=== PATIENT | male | born 1960 ===

== ENCOUNTER 2018-10-11 08:20 | Day surgery (SDC) | payer BC ==
[2018-10-06 14:52] VITALS: BMI 24.4
--- NOTE | 2018-10-11 08:09 | P.GSHP ---
History of Present Illness H&P Date: 10/11/18 CHIEF COMPLAINT: Colon screen HISTORY OF PRESENT ILLNESS: The patient is a 57-year-old male who presents for colon screen. Lower endoscopy was offered for further evaluation and management. PAST MEDICAL HISTORY: Please see list. PAST SURGICAL HISTORY: Please see list. MEDICATIONS: Please see list. ALLERGIES: Please see list. SOCIAL HISTORY: No illicit drug use FAMILY HISTORY: No reports of Crohn disease or ulcerative colitis. REVIEW OF ORGAN SYSTEMS: CONSTITUTIONAL: No reports of fevers or chills. PHYSICAL EXAM: VITAL SIGNS: Stable GENERAL: Well-developed pleasant in no acute distress. HEENT: No scleral icterus. Extraocular movements grossly intact. Moist buccal mucosa. NECK: Supple without lymphadenopathy. CHEST: Unlabored respirations. Equal bilateral excursions. CARDIOVASCULAR: Regular rate and rhythm. Distal 2+ pulses. ABDOMEN: Soft, nontender, nondistended. MUSCULOSKELETAL: No clubbing, cyanosis, or edema. ASSESSMENT: 1. Colon screen. PLAN: 1. 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 History of Any Multi-Drug Resistant Organisms: None Reported Past Surgical History: Hernia Repair, Tonsillectomy Additional Past Surgical History / Comment(s): REPAIR NASAL FX. UPPP. HEMORROIDECTOMY., REHANA INGUINAL HERNIAS. Past Anesthesia/Blood Transfusion Reactions: No Reported Reaction Past Psychological History: No Psychological Hx Reported Additional Psychological History / Comment(s): . Smoking Status: Former smoker Past Alcohol Use History: Rare Additional Past Alcohol Use History / Comment(s): QUIT SMOKING 3 YEARS AGO, SMOKED 3 CIGARETTES /DAY Past Drug Use History: None Reported - Past Family History Mother Family Medical History: No Reported History Medications and Allergies Home Medications Medication Instructions Recorded Confirmed Type Acetyl Carnitine-Alpha Lipoic 1 dose PO DAILY 10/06/18 History Ascorbic Acid [Vitamin C] 1,000 mg PO DAILY 10/06/18 10/06/18 History Calcium Carbonate [Calcium] 1,200 mg PO BID 10/06/18 10/06/18 History [place] Extract 150 mg PO DAILY 10/06/18 10/06/18 History [place]-3 Fatty Acids/Fish Oil [Fish 1,360 mg PO DAILY 10/06/18 10/06/18 History Oil 1,000 mg Softgel] [place] 1,000 mg PO BID 10/06/18 10/06/18 History Turmeric Root Extract [Turmeric] 400 mg PO DAILY 10/06/18 10/06/18 History Ubidecarenone [Co Q-10] 100 mg PO DAILY 10/06/18 10/06/18 History Vitamin B Complex 1 each PO DAILY 10/06/18 10/06/18 History Vitamin B-12 1 tab PO DAILY 10/06/18 10/06/18 History Vitamin E 1,000 unit PO DAILY 10/06/18 10/06/18 History Zinc 25 mg PO DAILY 10/06/18 10/06/18 History Allergies Allergy/AdvReac Type Severity Reaction Status Date / Time No Known Allergies Allergy Verified 10/06/18 14:35
[~2018-10-11 08:20] MED LIST: LACTATED RINGERS 1,000 ML IV SCH; LIDOCAINE 1% 20 ML VIAL (10MG/ML) FOR IV START INTRADERMA PRN
[2018-10-11 08:44] VITALS: RESP 16; TEMP 97.4
[2018-10-11] MEDS ORDERED: PROPOFOL 10 MG/ML 20 ML VIAL IV ONE (08:58)
[2018-10-11] MEDS ORDERED: LIDOCAINE 1% INJ 10MG/ML (20 ML MDV) ONE (08:58)
--- NOTE | 2018-10-11 09:24 | P.PCN ---
Date of Procedure: 10/11/18 Description of Procedure: PREOPERATIVE DIAGNOSIS: Personal history of colorectal polyps Colonoscopy screening. POSTOPERATIVE DIAGNOSIS: Personal history of colorectal polyps Colonoscopy screening. Diverticulosis, scattered. OPERATION: Colonoscopy to the ileocecal valve and appendiceal orifice. SURGEON: Tiara Agarwal MD. ANESTHESIA: MAC. INDICATIONS: The patient is a 57-year-old male who presents for colonoscopy screening. Last colonoscopy was 5 years ago. Benefits and risks were described and informed consent was obtained. DESCRIPTION OF PROCEDURE: The patient had undergone Gatorade, MiraLAX and Dulcolax prep. He had been brought into the operating room and laid in the left lateral decubitus position. After adequate intravenous sedation, the rectum was examined with 2% lidocaine jelly. No external hemorrhoids were encountered. The rectal tone was within normal limits. No lesions were palpated in the rectal vault. An Olympus colonoscope was advanced until the ileocecal valve and appendiceal orifice were clearly viewed. The prep was fair with residual liquid stools that obscured some of the mucosa. The colon was highly tortuous. Scattered diverticulosis was encountered. No large or adenomatous colonic polyps were found. No evidence of focal colitis was found. Retroflexion of the scope demonstrated no internal hemorrhoids. The colon was desufflated. The patient had tolerated the procedure well. Withdrawal time was over 6 minutes. FINDINGS: No internal hemorrhoids, grade 1 No external prolapsed hemorrhoids. No arteriovenous malformations. Highly tortuous colon No adenomatous polyps. The prep was fair with residual liquid stools that obscured some of the mucosa No focal colitis. RECOMMENDATIONS: Lower endoscopy in 5 years, 2023 Plan - Discharge Summary Discharge Rx Participant: No New Discharge Prescriptions: No Action Turmeric Root Extract [Turmeric] 400 mg PO DAILY Zinc 25 mg PO DAILY Vitamin E 1,000 unit PO DAILY Vitamin B-12 1 tab PO DAILY Vitamin B Complex 1 each PO DAILY Ubidecarenone [Co Q-10] 100 mg PO DAILY [place] 1,000 mg PO BID [place]-3 Fatty Acids/Fish Oil [Fish Oil 1,000 mg Softgel] 1,360 mg PO DAILY [place] Extract 150 mg PO DAILY Calcium Carbonate [Calcium] 1,200 mg PO BID Ascorbic Acid [Vitamin C] 1,000 mg PO DAILY Acetyl Carnitine-Alpha Lipoic 1 dose PO DAILY Discharge Medication List Acetyl Carnitine-Alpha Lipoic 1 dose PO DAILY 10/06/18 [History] Ascorbic Acid [Vitamin C] 1,000 mg PO DAILY 10/06/18 [History] Calcium Carbonate [Calcium] 1,200 mg PO BID 10/06/18 [History] [place] Extract 150 mg PO DAILY 10/06/18 [History] [place]-3 Fatty Acids/Fish Oil [Fish Oil 1,000 mg Softgel] 1,360 mg PO DAILY 10/06 [History] [place] 1,000 mg PO BID 10/06/18 [History] Turmeric Root Extract [Turmeric] 400 mg PO DAILY 10/06/18 [History] Ubidecarenone [Co Q-10] 100 mg PO DAILY 10/06/18 [History] Vitamin B Complex 1 each PO DAILY 10/06/18 [History] Vitamin B-12 1 tab PO DAILY 10/06/18 [History] Vitamin E 1,000 unit PO DAILY 10/06/18 [History] Zinc 25 mg PO DAILY 10/06/18 [History] Follow up Appointment(s)/Referral(s): Tiara Agarwal MD [STAFF PHYSICIAN] - As Needed Patient Instructions/Handouts: Diverticulosis Diet (GEN), Diverticulosis (DC), Colorectal Polyps (DC) Activity/Diet/Wound Care/Special Instructions: Repeat colonoscopy, 5 years, 2023 Discharge Disposition: HOME SELF-CARE
[2018-10-11 10:01] VITALS: BP 105/80; PULSE 48
== END 2018-10-11 11:55 | disposition home or self-care (01) ==
LOC: ORWHC2ENDO 08:20
PROVIDERS: ATTEND Surgery Plastic and Reconstructive Surgery
DX: Z12.11 Encounter for screening for malignant neoplasm of colon (principal); K57.30 Diverticulosis of large intestine without perforation or abscess without bleeding; Q43.8 Other specified congenital malformations of intestine; M19.90 Unspecified osteoarthritis, unspecified site; Z99.89 Dependence on other enabling machines and devices; Z87.891 Personal history of nicotine dependence; Z86.010 Personal history of colon polyps
CPT/HCPCS: G0105; J2001; J2704; 45378

== ENCOUNTER 2019-05-23 09:27 | Inpatient (IN) | payer BC ==
[2019-05-23] MEDS ORDERED: SODIUM CHLORIDE 0.9% 1,000 ML IV STA ×2 (09:56)
--- NOTE | 2019-05-23 09:59 | ED ---
General Adult HPI - General Chief complaint: Neuro Symptoms/Deficit Stated complaint: Poss tia/rt hand numb Time Seen by Provider: 05/23/19 09:56 Source: patient, RN notes reviewed, old records reviewed Mode of arrival: wheelchair Limitations: no limitations - History of Present Illness Initial comments: Patient is a 58-year-old male with a history of on Tuesday morning having some episodes of confused speech. Patient reports he was trying to describe Ruben Merino, and was saying numbers instead. Patient reports that the symptoms lasted for approximately an hour. He also stated at that time he started have some right arm numbness and weakness. He reports that the symptoms of his speech confusion improved after an hour, but he continues to have some weakness and feels that he drops things frequently with his right arm. He denies any significant past medical history including history of stroke. Patient reports he does have a family history of strokes. He complains of a mild headache at this time but seems to be just related to his sinuses states he's had a slight cold. Patient reports no fall or trauma or head injuries. He denies any visual disturbances. - Related Data Home Medications Medication Instructions Recorded Confirmed Acetyl Carnitine-Alpha Lipoic 1 dose PO DAILY 10/06/18 05/23/19 Ascorbic Acid [Vitamin C] 1,000 mg PO DAILY 10/06/18 05/23/19 Calcium Carbonate [Calcium] 1,200 mg PO BID 10/06/18 05/23/19 [place] Extract 150 mg PO DAILY 10/06/18 05/23/19 [place]-3 Fatty Acids/Fish Oil [Fish 1 cap PO DAILY 10/06/18 05/23/19 Oil 1,000 mg Softgel] Saw [place] 1,000 mg PO BID 10/06/18 05/23/19 Turmeric Root Extract [Turmeric] 500 mg PO DAILY 10/06/18 05/23/19 Ubidecarenone [Co Q-10] 100 mg PO DAILY 10/06/18 05/23/19 Vitamin B Complex 1 cap PO DAILY 10/06/18 05/23/19 Vitamin B-12 1 tab PO DAILY 10/06/18 05/23/19 Vitamin E 1,000 unit PO DAILY 10/06/18 05/23/19 Zinc 25 mg PO DAILY 10/06/18 05/23/19 Loratadine [Claritin] 10 mg PO DAILY 05/23/19 05/23/19 Allergies Allergy/AdvReac Type Severity Reaction Status Date / Time No Known Allergies Allergy Verified 05/23/19 09:52 Review of Systems ROS Statement: Those systems with pertinent positive or pertinent negative responses have been documented in the HPI. ROS Other: All systems not noted in ROS Statement are negative. 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 History of Any Multi-Drug Resistant Organisms: None Reported Past Surgical History: Hernia Repair, Tonsillectomy Additional Past Surgical History / Comment(s): REPAIR NASAL FX. UPPP. HEMORROIDECTOMY., REHANA INGUINAL HERNIAS. Past Anesthesia/Blood Transfusion Reactions: No Reported Reaction Past Psychological History: Depression Smoking Status: Current some day smoker Past Alcohol Use History: None Reported Past Drug Use History: None Reported - Past Family History Mother Family Medical History: No Reported History General Exam - General Exam Comments Initial Comments: Alert and oriented 58-year-old male. No distress. Limitations: no limitations General appearance: alert, in no apparent distress Head exam: Present: atraumatic, normocephalic, normal inspection Eye exam: Present: normal appearance, PERRL, EOMI. Absent: scleral icterus, conjunctival injection, periorbital swelling ENT exam: Present: normal exam, mucous membranes moist Neck exam: Present: normal inspection. Absent: tenderness, meningismus, lymphadenopathy Respiratory exam: Present: normal lung sounds bilaterally. Absent: respiratory distress, wheezes, rales, rhonchi, stridor Cardiovascular Exam: Present: regular rate, normal rhythm, normal heart sounds. Absent: systolic murmur, diastolic murmur, rubs, gallop, clicks GI/Abdominal exam: Present: soft, normal bowel sounds. Absent: distended, tenderness, guarding, rebound, rigid Extremities exam: Present: normal inspection, full ROM, normal capillary refill. Absent: tenderness, pedal edema, joint swelling, calf tenderness Back exam: Present: normal inspection Neurological exam: Present: alert Expanded Patient oriented to: Present: person, place Speech: Present: fluid speech Cranial nerves: EOM's Intact: Normal Cerebellar function: Finger to Nose: Normal Upper motor neuron: Pronator Drift: Normal Sensory exam: Upper Extremity Light Touch: Normal, Lower Extremity Light Touch: Normal Motor strength exam: RUE: 5 (Patient has full strength of the right upper extremity. ), LUE: 5, RLE: 5, LLE: 5 Eye Response: (4) open spontaneously Motor Response: (6) obeys commands Verbal Response: (5) oriented [place] Total: 15 Psychiatric exam: Present: normal affect, normal mood Skin exam: Present: warm, dry, intact, normal color. Absent: rash Course Vital Signs 05/23/19 05/23/19 05/23/19 09:30 10:27 11:26 Temperature 98 F Pulse Rate 61 69 58 L Respiratory 18 18 18 Rate Blood Pressure 142/85 120/80 116/83 O2 Sat by Pulse 98 95 97 Oximetry Medical Decision Making - Medical Decision Making 58-year-old male presents emergency department today for concern for an episode on Tuesday, 2 days ago he was forgetting his words replacing him with nonsensical words and he recognized this. Patient reports he was trying to say the words "leaky" and was saying numbers instead. He had other episodes of this. The symptoms resolved after an hour. He also at that time developed some right arm and upper extremity weakness. 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 He states that now just feels very clumsy and dropping things frequently. At this time he has no neurological deficits. NIH is 0. He is otherwise relatively healthy. He does have a family history of strokes and heart disease. At this time patient's labwork was reviewed and unremarkable. EKG shows normal sinus rhythm. At this time CT brain was completed and shows chronic small vessel changes. I discussed the patient's symptoms are related to likely a TIA. I discussed that Patient can be further evaluated have a consult to neurology. Patient is agreeable to this. Vital signs are stable Patient is agreeable treatment plan. Patient was given one aspirin. - Lab Data Result diagrams: 05/23/19 10:13 05/23/19 10:13 Lab Results 05/23/19 05/23/19 05/23/19 Range/Units 10: 10: 10:13 WBC 10.3 (3.8-10.6) k/uL RBC 4.76 (4.30-5.90) m/uL Hgb 14.2 (13.0-17.5) gm/dL Hct 43.1 (39.0-53.0) % MCV 90.5 (80.0-100.0) fL MCH 29.9 (25.0-35.0) pg MCHC 33.0 (31.0-37.0) g/dL RDW 13.0 (11.5-15.5) % Plt Count 225 (150-450) k/uL Neutrophils % 76 % Lymphocytes % 15 % Monocytes % 6 % Eosinophils % 1 % Basophils % 2 % Neutrophils # 7.8 H (1.3-7.7) k/uL Lymphocytes # 1.6 (1.0-4.8) k/uL Monocytes # 0.6 (0-1.0) k/uL Eosinophils # 0.1 (0-0.7) k/uL Basophils # 0.2 (0-0.2) k/uL PT 10.6 (9.0-12.0) sec INR 1.0 (<1.2) APTT 26.1 (22.0-30.0) sec Sodium 141 (137-145) mmol/L Potassium 4.1 (3.5-5.1) mmol/L Chloride 107 (98-107) mmol/L Carbon Dioxide 26 (22-30) mmol/L Anion Gap 8 mmol/L BUN 17 (9-20) mg/dL Creatinine 0.94 (0.66-1.25) mg/dL Est GFR (CKD-EPI)AfAm >90 (>60 ml/min/1.73 sqM) Est GFR (CKD-EPI)NonAf >90 (>60 ml/min/1.73 sqM) Glucose 94 (74-99) mg/dL Calcium 9.3 (8.4-10.2) mg/dL Total Bilirubin 0.4 (0.2-1.3) mg/dL AST 20 (17-59) U/L ALT 21 (21-72) U/L Alkaline Phosphatase 87 (38-126) U/L Troponin I (0.000-0.034) ng/mL Total Protein 6.8 (6.3-8.2) g/dL Albumin 4.0 (3.5-5.0) g/dL 05/23/19 Range/Units 10:13 WBC (3.8-10.6) k/uL RBC (4.30-5.90) m/uL Hgb (13.0-17.5) gm/dL Hct (39.0-53.0) % MCV (80.0-100.0) fL MCH (25.0-35.0) pg MCHC (31.0-37.0) g/dL RDW (11.5-15.5) % Plt Count (150-450) k/uL Neutrophils % % Lymphocytes % % Monocytes % % Eosinophils % % Basophils % % Neutrophils # (1.3-7.7) k/uL Lymphocytes # (1.0-4.8) k/uL Monocytes # (0-1.0) k/uL Eosinophils # (0-0.7) k/uL Basophils # (0-0.2) k/uL PT (9.0-12.0) sec INR (<1.2) APTT (22.0-30.0) sec Sodium (137-145) mmol/L Potassium (3.5-5.1) mmol/L Chloride (98-107) mmol/L Carbon Dioxide (22-30) mmol/L Anion Gap mmol/L BUN (9-20) mg/dL Creatinine (0.66-1.25) mg/dL Est GFR (CKD-EPI)AfAm (>60 ml/min/1.73 sqM) Est GFR (CKD-EPI)NonAf (>60 ml/min/1.73 sqM) Glucose (74-99) mg/dL Calcium (8.4-10.2) mg/dL Total Bilirubin (0.2-1.3) mg/dL AST (17-59) U/L ALT (21-72) U/L Alkaline Phosphatase (38-126) U/L Troponin I <0.012 (0.000-0.034) ng/mL Total Protein (6.3-8.2) g/dL Albumin (3.5-5.0) g/dL 05/23/19 11:03 EKG performed at 10:10 AM shows sinus bradycardia, septal infarct age undetermined. Abnormal EKG noted. No jugular rate of 57 bpm. MO interval is 184 ms. She spiritism is 104 ms. QT QTc is 426/392 ms. - Radiology Data Radiology results: report reviewed Age-related atrophy and chronic small vessel ischemic change without acute intercranial process seen at this time. Disposition Clinical Impression: TIA (transient ischemic attack) Disposition: ADMITTED IP TO THIS HOSP Condition: Good Is patient prescribed a controlled substance at d/c from ED?: No Referrals: Fabián Vu MD [Primary Care Provider] - 1-2 days Time of Disposition: 12:02
[2019-05-23 10:25] LABS: Basophils # (A) 0.2 k/uL (0-0.2); Basophils % (A) 2 %; Eosinophils # (A) 0.1 k/uL (0-0.7); Eosinophils % (A) 1 %; HCT 43.1 % (39.0-53.0); HGB 14.2 gm/dL (13.0-17.5); Lymphocytes # (A) 1.6 k/uL (1.0-4.8); Lymphocytes % (A) 15 %; MCH 29.9 pg (25.0-35.0); MCV 90.5 fL (80.0-100.0); Mean Platelet Volume 6.8; Monocytes # (A) 0.6 k/uL (0-1.0); Monocytes % (A) 6 %; Neutrophils # (A) 7.8 k/uL (1.3-7.7); Neutrophils % (A) 76 %; Platelet Count 225 k/uL (150-450); RBC 4.76 m/uL (4.30-5.90); WBC 10.3 k/uL (3.8-10.6)
[2019-05-23 10:33] LABS: ALT 21 U/L (21-72); AST 20 U/L (17-59); African American GFR (CKD) >90 (>60 ml/min/1.73 sqM); Alkaline Phosphatase 87 U/L (38-126); Anion Gap 8 mmol/L; Blood Urea Nitrogen 17 mg/dL (9-20); Calcium 9.3 mg/dL (8.4-10.2); Carbon Dioxide 26 mmol/L (22-30); Chloride 107 mmol/L (98-107); Glucose 94 mg/dL (74-99); Non-African American GFR(CKD) >90 (>60 ml/min/1.73 sqM); Potassium 4.1 mmol/L (3.5-5.1); Sodium 141 mmol/L (137-145); Total Bilirubin 0.4 mg/dL (0.2-1.3); Total Protein 6.8 g/dL (6.3-8.2)
[2019-05-23 10:35] LABS: Partial Thromboplastin Time 26.1 sec (22.0-30.0); Prothrombin Time 10.6 sec (9.0-12.0)
--- NOTE | 2019-05-23 10:51 | XR ---
EXAMINATION TYPE: XR chest 2V DATE OF EXAM: 05/23/2019 COMPARISON: NONE HISTORY: Shortness of breath TECHNIQUE: Frontal and lateral views of the chest are obtained. FINDINGS: Scattered senescent parenchymal changes noted. Hyperinflation compatible with COPD. No evidence for infiltrate. No evidence for atelectasis. Heart size is stable. Mediastinal structures are stable and grossly unremarkable. No evidence for hilar prominence. Degenerative changes dorsal spine. IMPRESSION: 1. No evidence for acute pulmonary disease.
--- NOTE | 2019-05-23 10:55 | CT ---
EXAMINATION TYPE: CT brain wo con DATE OF EXAM: 05/23/2019 COMPARISON: none HISTORY: difficulty with speech CT DLP: 1131.[address] of the brain was performed. The ventricles, basal cisterns and sulci overlying the cerebral convexities demonstrate mild enlargem ent. There is no evidence for intracranial hemorrhage or sulcal effacement. There is decreased attenuation about the periventricular white matter and deep white matter of both c erebral hemispheres, compatible with chronic small vessel ischemia. Differential diagnosis does inclu de demyelination. No mass effects are seen.No midline shift. Osseous calvarium is intact. If symptoms persist consider MRI. IMPRESSION: 1. Age related atrophic and chronic small vessel ischemic change without acute intracranial process s een at this time.
[2019-05-23] MEDS ORDERED: ASPIRIN 325 MG TAB PO STA (12:02)
[2019-05-23] MEDS: SODIUM CHLORIDE 0.9% 1,000 ML IV SCH (17:47)
--- NOTE | 2019-05-23 18:10 | CT ---
EXAMINATION TYPE: CT angio head neck DATE OF EXAM: 05/23/2019 HISTORY: TIA/RT ARM WEAKNESS COMPARISON: None CT DLP: 495.5 mGycm. Automated Exposure Control for Dose Reduction was Utilized. TECHNIQUE: CTA scan of the neck is performed with IV Contrast, patient injected with 65 mL of Isovue 370, axial images are obtained, coronal and sagittal reformatted images are reviewed. Three-D recons tructed images are created on an independent workstation and reviewed. FINDINGS: There is aberrant right subclavian artery which is posterior to the trachea. There is arterial flow i n the subclavian arteries bilaterally. There is arterial flow in the common internal and external car otid arteries bilaterally. There is wide patency of the carotid artery bifurcations. There is arteria l flow in both vertebral arteries which are fairly symmetric. There is arterial flow in the vertebrob asilar artery system. There is no evidence of vertebral or carotid artery aneurysm or dissection. No evidence of carotid or vertebral artery stenosis. There is arterial flow in the anterior middle and posterior cerebral arteries. There is normal contra st opacification of the venous sinuses. There is no mass effect. There is no evidence of intracranial aneurysm or neovascularity. There is no evidence of intracranial arterial stenosis. There is bilater al patency of the posterior communicating arteries. IMPRESSION: Negative CT angiogram of the brain. Negative CT angiogram of the neck. Aberrant right subclavian artery.
--- NOTE | 2019-05-23 18:19 | MR ---
EXAMINATION TYPE: MR brain wo con DATE OF EXAM: 05/23/2019 COMPARISON: None HISTORY: speech disturbance, RUE weakness/numbness Standard multiplanar, multisequence MRI departmental protocol Multiplanar, multisequence images of the brain were acquired. Diffusion weighted imaging was performe d. FINDINGS: There is 1.5 cm focus of increased signal on the diffusion images in the left cerebellar he misphere at the wilkinson-white matter junction. There is no mass effect. There is no midline shift. There is a similar 1.5 cm focus of increased signal in the cortex left insula of the temporal lobe. There is a 10 mm high signal focus at the wilkinson-white matter junction left posterior parietal lobe. On the T2 and FLAIR images there are multiple foci of increased signal at the wilkinson-white matter junct ion in both cerebral hemispheres. Total number is approximately 20 and most of these are 3 to 4 mm. There is mucosal thickening in the maxillary sinuses. The sella turcica appears normal. Brainstem is intact. Corpus callosum is intact. There is no evidence of intracranial hemorrhage. There is no mass effect. 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 There is also small acute infarct left posterior parietal lobe w tona matter . Numerous scattered small white matter high signal foci probably due to chronic small vessel ischemia.
--- NOTE | 2019-05-23 20:03 | P.CNNES ---
History of Present Illness Consult date: 05/23/19 Reason for Consult: TIA Chief complaint: Confused speech History of Present Illness: HISTORY OF PRESENT ILLNESS: Thank you for allowing me to evaluate Mr. Eb Johnson. Mr. Johnson is a 58-year-old R-handed man with past medical history of Osteoarthritis, sleep apnea, depression, presenting to [facility] after having an event of speech disturbance on Tuesday. Patient states that he was spending time with his son's family in [place], [place] for about 3 weeks. On Tuesday, before his son headed out to work, he wanted to [facility], but he couldn't say the name of the [place], so he was trying to think [place], but he couldn't say those words and ended up just counting numbers. This event lasted for a couple of minutes and went away. During this event, he also noticed some numbness in his RUE. Patient also experienced mild weakness in his RUE since the event. He has not had similar episodes since the event. Patient denies ever having similar episodes, and no previous episodes of numbness, tingling, weakness, vision changes, dizziness, or dropping things. Denies any headache, nausea, vomiting, double/blurry vision, dizziness, recent sickness. PAST MEDICAL HISTORY: Osteoarthritis, sleep apnea, depression PAST SURGICAL HISTORY: Tonsillectomy, hernia repair, nasal fracture repair, hemorrhoidectomy HOME MEDICATIONS: turmeric, zinc, vitamin E, vitamin B12, vitamin B complex, Co Q-10, Saw [place], [place], [place] Extract, Calcium, Vitamin C, Loratadine ALLERGIES: NKDA SOCIAL HISTORY: Former cigarette smoker, average <5 cigarettes per day, smokes pipes now, denies EtOH/drug abuse history FAMILY HISTORY: Grandmother had a stroke REVIEW OF SYSTEMS: The 14 systems are reviewed and no additional points are identified compared to the review of systems documented history and physical PHYSICAL EXAMINATION: VITAL SIGNS: T 98 HR 61 BP 142/85 O2 98% on RA GEN.: NAD, pleasant and cooperative HEENT: NCAT, sclera without icterus NECK: Supple SKIN AND EXTREMITIES: Warm to touch, no edema NEURO: MENTAL STATUS: Patient alert and oriented to self, place, time. Able to name the current president. Speech fluent, able to name and repeat, following all commands readily. No right and left disorientation, neglect. CRANIAL NERVES II THROUGH XII: II: [Pupils are equal and reactive to light symmetrically. No afferent pupillary defect. Visual levy are intact. III, IV, : No ptosis. Extraocular movements full. No nystagmus. V: Facial sensation intact from V1-3. VII. No clear facial asymmetry. VIII: Hearing intact to finger rub bilaterally. IX, X: Symmetric palate elevation. XI: Shoulder shrug intact. XII: Tongue midline without fasciculation or atrophy. MOTOR: Normal bulk/tone. No pronator drift or tremor. Strength is 5/5 throughout all 4 extremities. SENSORY: Intact to light touch, temperature, pinprick in all 4 extremities. Romberg is negative. REFLEXES: 2+ throughout. Toes are downgoing. No clonus. Trever's is absent COORDINATION: Finger to nose and heel to cabral intact. No dysmetria. Rapid alternating movements with good speed and accuracy. GAIT: Narrow-based and stable. Able to toe/heel/tandem walk DIAGNOSTIC TESTING: LABORATORY: WBC 10.3 hemoglobin 14.2 platelet 225 PT 10.6 INR 1.0 sodium 141 potassium 4.1 chloride 107 bicarb 26 BUN 17 creatinine 0.94 glucose 94 AST 20 ALT 21 troponin <0.012 IMAGING: CT head without contrast 05/23/2019: Age-related atrophic and chronic small vessel ischemic changes without acute intracranial process EKG 05/23/2019: Sinus bradycardia ASSESSMENT: Mr. Johnson is a 58-year-old R-handed man with past medical history of Osteoarthritis, sleep apnea, depression, presenting to [facility] after having an event of speech disturbance on Tuesday. Patient at this time with no objective focal symptoms. However, patient reports R-sided symptoms along with speech difficulty and patient is R handed, concerning for L-sided cortical stroke. RECOMMENDATIONS: 1. MRI brain without contrast 2. CTA Head and Neck w/ contrast 3. Transthoracic echocardiogram 4. Cardiac monitoring 5. SBP < 160 6. ASA 81mg qday, Atorvastatin 80mg qhs (patient is also on Plavix for cardiac reasons) 7. Labs: A1C, TSH, FLP 8. PT/OT/ST per protocol 9. Discussed with patient about stroke prevention guidelines. Medication compliance, hypertension/diabetes control, lifestyle changes including no smoking, drinking in moderation, losing weight, exercising, eating healthier 10. Neurology will continue to follow 11. 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 History of Any Multi-Drug Resistant Organisms: None Reported Past Surgical History: Hernia Repair, Tonsillectomy Additional Past Surgical History / Comment(s): REPAIR NASAL FX. UPPP. HEMORROIDECTOMY., REHANA INGUINAL HERNIAS. Past Anesthesia/Blood Transfusion Reactions: No Reported Reaction Past Psychological History: Depression Smoking Status: Current some day smoker Past Alcohol Use History: None Reported Past Drug Use History: None Reported - Past Family History Mother Family Medical History: No Reported History Father Family Medical History: Vascular Disorder Additional Family Medical History / Comment(s): Father from a disected aortic aneurysm. He has TB Medications and Allergies Home Medications Medication Instructions Recorded Confirmed Type Acetyl Carnitine-Alpha Lipoic 1 dose PO DAILY 10/06/18 05/23/19 History Ascorbic Acid [Vitamin C] 1,000 mg PO DAILY 10/06/18 05/23/19 History Calcium Carbonate [Calcium] 1,200 mg PO BID 10/06/18 05/23/19 History [place] Extract 150 mg PO DAILY 10/06/18 05/23/19 History [place]-3 Fatty Acids/Fish Oil [Fish 1 cap PO DAILY 10/06/18 05/23/19 History Oil 1,000 mg Softgel] [place] 1,000 mg PO BID 10/06/18 05/23/19 History Turmeric Root Extract [Turmeric] 500 mg PO DAILY 10/06/18 05/23/19 History Ubidecarenone [Co Q-10] 100 mg PO DAILY 10/06/18 05/23/19 History Vitamin B Complex 1 cap PO DAILY 10/06/18 05/23/19 History Vitamin B-12 1 tab PO DAILY 10/06/18 05/23/19 History Vitamin E 1,000 unit PO DAILY 10/06/18 05/23/19 History Zinc 25 mg PO DAILY 10/06/18 05/23/19 History Loratadine [Claritin] 10 mg PO DAILY 05/23/19 05/23/19 History Allergies Allergy/AdvReac Type Severity Reaction Status Date / Time No Known Allergies Allergy Verified 05/23/19 09:52 Physical Examination - Vital Signs Vital Signs: Vital Signs Temp Pulse Resp BP Pulse Ox 05/23/19 11:26 58 L 18 116/83 97 05/23/19 10:27 69 18 120/80 95 05/23/19 09:30 98 F 61 18 142/85 98 Intake and Output 05/22/19 05/23/19 05/23/19 22:59 06:59 14:59 Other: Weight 79.379 kg Results - Laboratory Findings CBC and BMP: 05/23/19 10:13 05/23/19 10:13 Abnormal Lab Findings: Abnormal Labs 05/23/19 10:13 Neutrophils # 7.8 H
[2019-05-23] MEDS: CALCIUM CARBONATE 500 MG CHEWABLE PO SCH ×2 (20:42→20:54)
[2019-05-23] MEDS: ATORVASTATIN 80 MG TAB PO SCH (20:42)
[2019-05-23] MEDS: ENOXAPARIN 40 MG/0.4 ML SYRINGE SQ SCH (20:43)
[2019-05-24] MEDS: SODIUM CHLORIDE 0.9% 1,000 ML IV SCH ×3 (03:04→16:18)
[2019-05-24] MEDS ORDERED: ASPIRIN 325 MG TAB PO SCH (09:00)
--- NOTE | 2019-05-24 10:14 | P.CRDCN ---
History of Present Illness Consult date: 05/24/19 Requesting physician: Juan Santos Chief complaint: Speech disturbance History of present illness: This is a 58-year-old gentleman with history of sleep apnea, depression, osteoarthritis, presented to the hospital with symptoms of expressive aphasia, the symptoms lasted for a couple of minutes and then went a way. Patient also noticed some numbness and weakness in his right upper extremity. For this reason he presented to the hospital for further evaluation and treatment. Chest x-ray on presentation here did not reveal any evidence for acute pulmonary disease. CAT scan of the brain showed age-related atrophic and chronic small vessel ischemic change without acute intracranial process. EKG shows a sinus bradycardia with no acute changes. CT angiography of the head and neck, negative CT of the brain negative CT angiogram of the neck. MRI of the brain was performed which reveals evidence of acute cortical infarct involving the insulin the left temporal lobe and also the left cerebellar hemisphere. There is also small acute infarct of the left posterior parietal lobe. Numerous scattered white matter probably due to chronic small vessel ischemia. Blood pressure 119/60 with a heart rate in the 50s, 96% on room air. White blood cell count 10.3, hemoglobin 14.2, platelet count 225. Sodium 141, potassium 4.1, BUN 17 and creatinine 0.9. Troponin 0.012. At the time of my examination this morning, patient is back to his normal self. He denies any right-sided weakness, his speech is back to normal. Primary care doc has requested cardiology to perform a SARINA. 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 History of Any Multi-Drug Resistant Organisms: None Reported Past Surgical History: Hernia Repair, Tonsillectomy Additional Past Surgical History / Comment(s): REPAIR NASAL FX. UPPP. HEMORROIDECTOMY., REHANA INGUINAL HERNIAS. Past Anesthesia/Blood Transfusion Reactions: No Reported Reaction Past Psychological History: Depression Smoking Status: Current some day smoker Past Alcohol Use History: None Reported Past Drug Use History: None Reported - Past Family History Mother Family Medical History: No Reported History Additional Family Medical History / Comment(s): Mother from an aortic leak. Father Family Medical History: Vascular Disorder Additional Family Medical History / Comment(s): Father from a disected aortic aneurysm. He has TB Medications and Allergies Home Medications Medication Instructions Recorded Confirmed Type Acetyl Carnitine-Alpha Lipoic 1 dose PO DAILY 10/06/18 05/23/19 History Ascorbic Acid [Vitamin C] 1,000 mg PO DAILY 10/06/18 05/23/19 History Calcium Carbonate [Calcium] 1,200 mg PO BID 10/06/18 05/23/19 History [place] Extract 150 mg PO DAILY 10/06/18 05/23/19 History [place]-3 Fatty Acids/Fish Oil [Fish 1 cap PO DAILY 10/06/18 05/23/19 History Oil 1,000 mg Softgel] Saw [place] 1,000 mg PO BID 10/06/18 05/23/19 History Turmeric Root Extract [Turmeric] 500 mg PO DAILY 10/06/18 05/23/19 History Ubidecarenone [Co Q-10] 100 mg PO DAILY 10/06/18 05/23/19 History Vitamin B Complex 1 cap PO DAILY 10/06/18 05/23/19 History Vitamin B-12 1 tab PO DAILY 10/06/18 05/23/19 History Vitamin E 1,000 unit PO DAILY 10/06/18 05/23/19 History Zinc 25 mg PO DAILY 10/06/18 05/23/19 History Loratadine [Claritin] 10 mg PO DAILY 05/23/19 05/23/19 History Allergies Allergy/AdvReac Type Severity Reaction Status Date / Time No Known Allergies Allergy Verified 05/23/19 09:52 Physical Exam Vitals: Vital Signs Temp Pulse Pulse Resp BP BP Pulse Ox 05/24/19 08:22 54 L 05/24/19 07:50 54 L 05/24/19 07:47 97.8 F 54 L 17 119/64 96 05/24/19 07:00 97.8 F 54 L 17 117/64 96 05/24/19 04:00 97.1 F L 47 L 16 117/69 92 L 05/24/19 00:00 98.3 F 53 L 17 112/70 96 05/23/19 20:00 98.1 F 56 L 16 122/78 95 05/23/19 16:13 98.1 F 52 L 18 111/86 96 05/23/19 13:52 59 L 16 110/82 05/23/19 13:02 16 05/23/19 11:26 58 L 18 116/83 97 05/23/19 10:27 69 18 120/80 95 Intake and Output 05/23/19 05/24/19 05/24/19 22:59 06:59 14:59 Intake Total 2120 750 Balance 2120 750 Intake: IV 10 Invasive Line 1 10 Amount of Fluid Infused ( 1000 ml) Intake, IV Titration 150 750 Amount Sodium Chloride 0.9% 1, 150 750 000 ml @ 100 mls/hr IV . Q10H [facility] Rx#:[id number] Oral 960 Other: Voiding Method Toilet Toilet # Voids 1 Weight 81.9 kg PHYSICAL EXAMINATION: GENERAL: 78-year-old gentleman in no acute distress at the time of my examination HEENT: Head is atraumatic, normocephalic. Pupils equal, round. Sclera anicteric. Conjunctiva are clear. Mucous membranes of the mouth are moist. Neck is supple. There is no elevated jugular venous pressure. No carotid bruit is heard. HEART EXAMINATION: Heart S1, S2 normal. No murmur or gallop heard. CHEST EXAMINATION: Lungs are clear to auscultation and precussion. No chest wall tenderness is noted on palpation or with deep breathing. ABDOMEN: Soft, nontender. Bowel sounds are heard. No organomegaly noted. EXTREMITIES: 2+ peripheral pulses with no evidence of peripheral edema and no calf tenderness noted. NEUROLOGIC patient is awake, alert and oriented 3 . . Results 05/23/19 10:13 05/23/19 10:13 Cardiac Enzymes 05/23/19 05/23/19 Range/Units 10:13 10:13 AST 20 (17-59) U/L Troponin I <0.012 (0.000-0.034) ng/mL Coagulation 05/23/19 Range/Units 10:13 PT 10.6 (9.0-12.0) sec APTT 26.1 (22.0-30.0) sec Lipids 05/23/19 Range/Units 10:13 Triglycerides 58 (<150) mg/dL Cholesterol 175 (<200) mg/dL HDL Cholesterol 46 (40-60) mg/dL CBC 05/23/19 Range/Units 10:13 WBC 10.3 (3.8-10.6) k/uL RBC 4.76 (4.30-5.90) m/uL Hgb 14.2 (13.0-17.5) gm/dL Hct 43.1 (39.0-53.0) % Plt Count 225 (150-450) k/uL Comprehensive Metabolic Panel 05/23/19 Range/Units 10:13 Sodium 141 (137-145) mmol/L Potassium 4.1 (3.5-5.1) mmol/L Chloride 107 (98-107) mmol/L Carbon Dioxide 26 (22-30) mmol/L BUN 17 (9-20) mg/dL Creatinine 0.94 (0.66-1.25) mg/dL Glucose 94 (74-99) mg/dL Calcium 9.3 (8.4-10.2) mg/dL AST 20 (17-59) U/L ALT 21 (21-72) U/L Alkaline Phosphatase 87 (38-126) U/L Total Protein 6.8 (6.3-8.2) g/dL Albumin 4.0 (3.5-5.0) g/dL Current Medications Generic Name Dose Route Start Last Admin Trade Name Freq PRN Reason Stop Dose Admin Ascorbic Acid 1,000 mg 05/24/19 09:00 Vitamin C PO DAILY [facility] Aspirin 81 mg 05/24/19 09:00 Aspirin PO DAILY [facility] Atorvastatin Calcium 80 mg 05/23/19 21:00 05/23/19 20:42 Lipitor PO 80 mg HS [facility] Administration Calcium Carbonate/Glycine 1,000 mg 05/23/19 21:00 05/23/19 20:54 Tums PO Not Given BID [facility] Enoxaparin Sodium 40 mg 05/23/19 20:00 05/23/19 20:43 Lovenox SQ 40 mg DAILY@2000 [facility] Administration Sodium Chloride 1,000 mls @ 100 mls/hr 05/23/19 12:15 05/24/19 09:12 Saline 0.9% IV 100 mls/hr .Q10H [facility] Administration Intake and Output 05/23/19 05/24/19 05/24/19 22:59 06:59 14:59 Intake Total 2120 750 Balance 2120 750 Intake: IV 10 Invasive Line 1 10 Amount of Fluid Infused ( 1000 ml) Intake, IV Titration 150 750 Amount Sodium Chloride 0.9% 1, 150 750 000 ml @ 100 mls/hr IV . Q10H [facility] Rx#:[id number] Oral 960 Other: Voiding Method Toilet Toilet # Voids 1 Weight 81.9 kg 05/23/19 10:13 05/23/19 10:13 EKG Interpretations (text) EKG shows normal sinus rhythm with no acute changes. 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 We will also discuss with neurology the need for SARINA, if it's recommended, we will schedule patient for SARINA. Further recommendations to follow. DNP note has been reviewed, I agree with a documented findings and plan of care. Patient was seen and examined.
--- NOTE | 2019-05-24 11:13 | P.PN ---
Progress Note - Text Progress Note Date: 05/24/19 SUBJECTIVE/INTERVAL EVENTS: no acute overnight events. pt with no additional episodes of speech difficulty, weakness or numbness/tingling. Denies headache, nausea, vomiting. PHYSICAL EXAMINATION: VITAL SIGNS: T 97.8 HR 54 RR 17 BP 119/64 O2 sat 96% on RA GEN.: NAD, pleasant and cooperative HEENT: NCAT, sclera without icterus NECK: Supple SKIN AND EXTREMITIES: Warm to touch, no edema NEURO: MENTAL STATUS: Patient alert and oriented to self, place, time. Able to name the current president. Speech fluent, able to name and repeat, following all commands readily. No right and left disorientation, neglect. CRANIAL NERVES II THROUGH XII: II: [Pupils are equal and reactive to light symmetrically. No afferent pupillary defect. Visual levy are intact. III, IV, : No ptosis. Extraocular movements full. No nystagmus. V: Facial sensation intact from V1-3. VII. No clear facial asymmetry. VIII: Hearing intact to finger rub bilaterally. IX, X: Symmetric palate elevation. XI: Shoulder shrug intact. XII: Tongue midline without fasciculation or atrophy. MOTOR: Normal bulk/tone. No pronator drift or tremor. Strength is 5/5 throughout all 4 extremities. SENSORY: Intact to light touch, temperature, pinprick in all 4 extremities. Romberg is negative. REFLEXES: 2+ throughout. Toes are downgoing. No clonus. Trever's is absent COORDINATION: Finger to nose and heel to cabral intact. No dysmetria. Rapid alternating movements with good speed and accuracy. GAIT: Narrow-based and stable. Able to toe/heel/tandem walk DIAGNOSTIC TESTING: LABORATORY: WBC 10.3 hemoglobin 14.2 platelet 225 PT 10.6 INR 1.0 sodium 141 potassium 4.1 chloride 107 bicarb 26 BUN 17 creatinine 0.94 glucose 94 AST 20 ALT 21 troponin <0.012 TSH 2.990 total cholesterol 175 LDL 117 HDL 46 triglycerides 58 IMAGING: MRI brain without contrast 05/23/2019: Acute cortical infarct involving the insula of the left temporal lobe and also the left cerebellar hemisphere. There is also acute infarct left posterior parietal lobe white matter. Numerous scattered small white matter high signal foci probably due to chronic small vessel ischemia CTA head and neck with contrast 05/23/2019: Negative CT of the brain and neck. CT head without contrast 05/23/2019: Age-related atrophic and chronic small vessel ischemic changes without acute intracranial process EKG 05/23/2019: Sinus bradycardia ASSESSMENT: Mr. Johnson is a 58-year-old R-handed man with past medical history of Osteoarthritis, sleep apnea, depression, presenting to [facility] after having an event of speech disturbance on Tuesday. Patient at this time with no objective focal symptoms. However, patient reports R-sided symptoms along with speech difficulty and patient is R handed, concerning for L-sided cortical stroke. MRI brain showing acute cortical infarct involving the left temporal lobe, left cerebellar hemisphere, and left posterior parietal lobe. Distribution of areas of stroke concerning for cardioembolic etiology. RECOMMENDATIONS: 1. Transthoracic echocardiogram; if unremarkable, plan to get SARINA 2. Cardiac monitoring (bradycardia; no atrial arrhythmia observed so far); event monitor/loop recorder will be placed 3. SBP < 160 4. ASA 81mg qday, Atorvastatin 80mg qhs (patient is also on Plavix for cardiac reasons) 5. Labs: A1C 6. PT/OT/ST per protocol 7. Discussed with patient about stroke prevention guidelines. Medication compliance, hypertension/diabetes control, lifestyle changes including no smoking, drinking in moderation, losing weight, exercising, eating healthier 8. Neurology will continue to follow 9. Patient will need to follow up with neurologist as outpatient
--- NOTE | 2019-05-24 11:53 | ECHOF ---
Referral Reason:speech disturbance, RUE weakness/numbness MEASUREMENTS -------- HEIGHT: 188.0 cm WEIGHT: 81.6 kg BP: 117/60 RVIDd: 4.2 cm (< 3.3) IVSd: 1.2 cm (0.6 - 1.1) LVIDd: 4.8 cm (3.9 - 5.3) LVPWd: 1.3 cm (0.6 - 1.1) IVSs: 1.4 cm LVIDs: 4.2 cm LVPWs: 1.4 cm LA Diam: 3.7 cm (2.7 - 3.8) LAESV Index (A-L): 22.00 ml/m Ao Diam: 2.9 cm (2.0 - 3.7) AV Cusp: 1.9 cm (1.5 - 2.6) LA Diam: 4.0 cm (2.7 - 3.8) MV EXCURSION: 22.863 mm (> 18.000) MV EF SLOPE: 120 mm/s (70 - 150) EPSS: 0.5 cm MV E David: 0.65 m/s MV DecT: 201 ms MV A David: 0.76 m/s MV E/A Ratio: 0.86 RAP: 5.00 mmHg RVSP: 13.38 mmHg TAPSE: 24.34 mm FINDINGS -------- Sinus rhythm. This was a technically good study. The left ventricular size is normal. There is mild concentric left ventricular hypertrophy. Overa ll left ventricular systolic function is normal with, an EF between 55 - 60 %. The right ventricle is normal in size. The left atrial size is normal. Normal LA size by volume 22+/-6 ml/m2. The right atrial size is normal. The aortic valve is trileaflet, and appears structurally normal. No aortic stenosis or regurgitation. Mild mitral regurgitation is present. Mild tricuspid regurgitation present. Right ventricular systolic pressure is normal at < 35 mmHg. There is no evidence of pulmonary hypertension. There is no pulmonic regurgitation present. The aortic root size is normal. There is no pericardial effusion. CONCLUSIONS -------- 1. Sinus rhythm. 2. This was a technically good study. 3. The left ventricular size is normal. 4. There is mild concentric left ventricular hypertrophy. 5. Overall left ventricular systolic function is normal with, an EF between 55 - 60 %. 6. The right ventricle is normal in size. 7. The left atrial size is normal. 8. Normal LA size by volume 22+/-6 ml/m2. 9. The right atrial size is normal. 10. The aortic valve is trileaflet, and appears structurally normal. No aortic stenosis or regurgitat ion. 11. Mild mitral regurgitation is present. 12. Mild tricuspid regurgitation present. 13. Right ventricular systolic pressure is normal at < 35 mmHg. 14. There is no evidence of pulmonary hypertension. 15. There is no pulmonic regurgitation present. 16. The aortic root size is normal. 17. There is no pericardial effusion. SHIRT CREASER: Christine Esteban RDCS
[2019-05-24] MEDS ORDERED: fentaNYL (PF) 50 MCG/ML 2 ML AMP ONE (12:52)
[2019-05-24] MEDS ORDERED: BENZOCAINE SPRAY 1 CAN MUCOUS MEM ONE ×2 (13:07→13:12)
[2019-05-24] MEDS ORDERED: fentaNYL (PF) 50 MCG/ML 2 ML AMP IVP ONE (13:12)
[2019-05-24] MEDS ORDERED: MIDAZOLAM PF (FBP) 2 MG/2 ML VIAL IVP ONE ×2 (13:12→13:15)
[2019-05-24] MEDS ORDERED: IV FLUID CONTINUATION 1,000 ML IV ONE (13:20)
[2019-05-24 13:43] LABS: Hemoglobin A1C 5.6 % (4.0-6.0)
--- NOTE | 2019-05-24 14:01 | ECHOT ---
TRANSESOPHAGEAL ECHOCARDIOGRAM Mr. Johnson is a 58-year-old gentleman who was advised a SARINA to evaluate the symptoms of a stroke. The patient was given intravenous sedation with Versed and fentanyl and transesophageal echocardiogram was performed without any complications. Left ventricular chamber is normal in size with normal left ventricular systolic functions, mitral, aortic and tricuspid valve morphology is normal. There is mild mitral regurgitation noted. Left atrial appendage is normal. There is no evidence of thrombus in the left atrial appendage. There is evidence of small size PFO with a small [id number] shunt. The interatrial septum is aneurysmal. The saline contrast study was performed which shows evidence of moderate to large [id number] shunt. Descending thoracic aorta is normal. FINAL IMPRESSION: 1. There is evidence of a PFO with a small [id number] shunt. There is evidence interatrial septum is aneurysmal and on saline contrast study there is a moderate to large right to left shunt noted. 2. Left ventricular function is normal. 3. Mild mitral regurgitation is noted. 4. Aortic, mitral and tricuspid valve morphology is normal. 5. Left atrial appendage is normal. MMODL / IJN: [id number] /
[2019-05-24 15:09] VITALS: RESP 16
[2019-05-24] MEDS: ASPIRIN 81 MG PO SCH (15:09)
[2019-05-24] MEDS: ASCORBIC ACID 500 MG TAB PO SCH (15:09)
[2019-05-24] MEDS: CALCIUM CARBONATE 500 MG CHEWABLE PO SCH ×2 (15:09→20:04)
[2019-05-24] MEDS ORDERED: CLOPIDOGREL 75 MG TAB PO STA (18:06)
[2019-05-24] MEDS: ATORVASTATIN 80 MG TAB PO SCH (20:04)
[2019-05-24] MEDS: ENOXAPARIN 40 MG/0.4 ML SYRINGE SQ SCH (20:04)
--- NOTE | 2019-05-24 21:50 | P.HPIM ---
History of Present Illness H&P Date: 05/24/19 Chief Complaint: Difficulty with speech History of presenting complaint: This is a very pleasant 58-year-old patient of Dr. Vu. Patient on Tuesday was in [facility] with her son. He was trying to say the word Ruben cartwright, but was unable to say that. He started going from one leg together for example [place] to [place] but all that was coming out was numbers 3-5. He also felt some numbness in the right hand. Does no headache no dizziness. Patient's son wanted to take him to the ER. But patient said he'll be fine. She decided to drive back to [place]. The following day he was working in the garden. Hasn't been away for a few weeks. He noticed that he was dropping things out of his right hand. Finally decided to get into the ER the following day. Updated a bit more on the Internet. Last night MRI results were called to me with a dense of acute infarct in different areas. I did order a SARINA. Patient's speech is somewhat better. Review of systems: GEN.: None EYES: None HEENT: None NECK: None RESPIRATORY: None CARDIOVASCULAR: None GASTROINTESTINAL: None GENITOURINARY: None MUSCULOSKELETAL: Some pain in joints LYMPHATICS: None HEMATOLOGICAL: None PSYCHIATRY: None NEUROLOGICAL: As above Past medical history to include: Osteoarthritis, obstructive sleep apnea treated with surgery many years ago. Depression many years ago. Social history: Smokes occasionally intermittently. Alcohol occasionally. Lives alone. Retired. 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 Physical examination: VITAL SIGNS: 98, 61, 18, 142/85, 98% room air-upon presentation GENERAL: BMI 25.2, propped up in bed, awake. EYES: Pupils equal. Conjunctiva normal. HEENT: External appearance of nose and ears normal, oral cavity grossly normal. NECK: JVD not raised; masses not palpable. HEART: First and second heart sounds are normal; no edema. LUNGS: Respiratory rate normal; clear to auscultation. ABDOMEN: Soft, nontender, liver spleen not palpable, no masses palpable. PSYCH: Alert and oriented x3; mood and affect normal. NEUROLOGICAL: Cranial nerves grossly intact; no facial asymmetry, power and sensation grossly intact, power in the right distal and 4/5. LYMPHATICS: [No lymph nodes palpable in the axilla and neck Investigations: White count 10.3 hemoglobin 14.2 platelets 225 potassium 4.1 and creatinine 0.94 LDL 117 TSH normal Chest x-ray film personally reviewed by me-hyperinflation EKG tracing personally reviewed by me-sinus bradycardia MRI brain-acute cortical infarct involving the insular of the left temporal lobe, left cerebral hemisphere, left posterior parietal lobe white matter. Numerous scattered small white matter high signal foci. Negative CT angiogram of the brain. Negative CT angiogram of the neck. Computed tomography scan of the brain-age related changes Assessment: -Acute stroke and multiple areas of the brain involving the insular of the left temporal lobe, left cerebral hemisphere, left posterior parietal lobe white matter. This is embolic in nature. Therefore SARINA has been ordered. Manifesting as difficulty finding words and some weakness in the right hand -Hyperlipidemia Plan: Neurology and, cardiology was consulted. Patient is on aspirin, Lipitor, Plavix. Neuro checks are in place. Lovenox for DVT prophylaxis. SARINA was ordered. 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 History of Any Multi-Drug Resistant Organisms: None Reported Past Surgical History: Hernia Repair, Tonsillectomy Additional Past Surgical History / Comment(s): REPAIR NASAL FX. UPPP. HEMORROIDECTOMY., REHANA INGUINAL HERNIAS. Past Anesthesia/Blood Transfusion Reactions: No Reported Reaction Past Psychological History: Depression Smoking Status: Current some day smoker Past Alcohol Use History: None Reported Past Drug Use History: None Reported - Past Family History Mother Family Medical History: No Reported History Additional Family Medical History / Comment(s): Mother from an aortic leak. Father Family Medical History: Vascular Disorder Additional Family Medical History / Comment(s): Father from a disected aortic aneurysm. He has TB Medications and Allergies Home Medications Medication Instructions Recorded Confirmed Type Acetyl Carnitine-Alpha Lipoic 1 dose PO DAILY 10/06/18 05/23/19 History Ascorbic Acid [Vitamin C] 1,000 mg PO DAILY 10/06/18 05/23/19 History Calcium Carbonate [Calcium] 1,200 mg PO BID 10/06/18 05/23/19 History [place] Dish Extract 150 mg PO DAILY 10/06/18 05/23/19 History [place]-3 Fatty Acids/Fish Oil [Fish 1 cap PO DAILY 10/06/18 05/23/19 History Oil 1,000 mg Softgel] Saw [place] 1,000 mg PO BID 10/06/18 05/23/19 History Turmeric Root Extract [Turmeric] 500 mg PO DAILY 10/06/18 05/23/19 History Ubidecarenone [Co Q-10] 100 mg PO DAILY 10/06/18 05/23/19 History Vitamin B Complex 1 cap PO DAILY 10/06/18 05/23/19 History Vitamin B-12 1 tab PO DAILY 10/06/18 05/23/19 History Vitamin E 1,000 unit PO DAILY 10/06/18 05/23/19 History Zinc 25 mg PO DAILY 10/06/18 05/23/19 History Loratadine [Claritin] 10 mg PO DAILY 05/23/19 05/23/19 History Allergies Allergy/AdvReac Type Severity Reaction Status Date / Time No Known Allergies Allergy Verified 05/23/19 09:52 Physical Exam Vitals: Vital Signs Temp Pulse Pulse Resp BP BP Pulse Ox 05/24/19 08:22 54 L 05/24/19 07:50 54 L 05/24/19 07:47 97.8 F 54 L 17 119/64 96 05/24/19 07:00 97.8 F 54 L 17 117/64 96 05/24/19 04:00 97.1 F L 47 L 16 117/69 92 L 05/24/19 00:00 98.3 F 53 L 17 112/70 96 05/23/19 20:00 98.1 F 56 L 16 122/78 95 05/23/19 16:13 98.1 F 52 L 18 111/86 96 05/23/19 13:52 59 L 16 110/82 05/23/19 13:02 16 05/23/19 11:26 58 L 18 116/83 97 05/23/19 10:27 69 18 120/80 95 Intake and Output 05/23/19 05/24/19 05/24/19 22:59 06:59 14:59 Intake Total 2120 750 Balance 2120 750 Intake: IV 10 Invasive Line 1 10 Amount of Fluid Infused ( 1000 ml) Intake, IV Titration 150 750 Amount Sodium Chloride 0.9% 1, 150 750 000 ml @ 100 mls/hr IV . Q10H VEDA Rx#:[id number] Oral 960 Other: Voiding Method Toilet Toilet # Voids 1 Weight 81.9 kg Results CBC & Chem 7: 05/23/19 10:13 05/23/19 10:13 Labs: Abnormal Lab Results - Last 24 Hours (Table) 05/23/19 05/23/19 Range/Units 10:13 10:13 Neutrophils # 7.8 H (1.3-7.7) k/uL LDL Cholesterol, Calc 117 H (0-99) mg/dL Thrombosis Risk Factor Assmnt - Choose All That Apply Any of the Below Risk Factors Present?: Yes Each Factor Represents 1 point: Age 41-60 years Other Risk Factors: No Other congenital or acquired thrombophilia - If yes, enter type in comment: No Thrombosis Risk Factor Assessment Total Risk Factor Score: 1 Thrombosis Risk Factor Assessment Level: Low Risk
[2019-05-25] MEDS ORDERED: CLOPIDOGREL 75 MG TAB PO SCH (09:00)
[2019-05-25] MEDS: SODIUM CHLORIDE 0.9% 1,000 ML IV SCH ×2 (11:41→16:35)
[2019-05-25 12:01] VITALS: BP 114/71; PULSE 50; TEMP 98.1
[2019-05-25] MEDS: ASCORBIC ACID 500 MG TAB PO SCH (12:03)
[2019-05-25] MEDS: CALCIUM CARBONATE 500 MG CHEWABLE PO SCH (12:04)
[2019-05-25] MEDS: ASPIRIN 81 MG PO SCH (12:04)
--- NOTE | 2019-05-25 15:05 | P.PN ---
Progress Note - Text Progress Note Date: 05/25/19 SUBJECTIVE/INTERVAL EVENTS: No acute overnight events. Denies any headache nausea, vomiting, double/blurry vision, weakness, numbness, tingling, any additional speech difficulty. Discussed with patient in detail about the MRI finding. Areas of infarct involved the anterior and posterior circulation. Patient found with PFO along with a omqnt-nf-fucf shunt on SARINA. Patient will be followed up as outpatient with a multimedia authoring specialist for PFO closure. PHYSICAL EXAMINATION: VITAL SIGNS: T 97.6 HR 60 RR 16 BP 109/65 O2 sat 94% on RA GEN.: NAD, pleasant and cooperative HEENT: NCAT, sclera without icterus NECK: Supple SKIN AND EXTREMITIES: Warm to touch, no edema NEURO: MENTAL STATUS: Patient alert and oriented to self, place, time. Able to name the current president. Speech fluent, able to name and repeat, following all commands readily. No right and left disorientation, neglect. CRANIAL NERVES II THROUGH XII: II: [Pupils are equal and reactive to light symmetrically. No afferent pupillary defect. Visual levy are intact. III, IV, : No ptosis. Extraocular movements full. No nystagmus. V: Facial sensation intact from V1-3. VII. No clear facial asymmetry. VIII: Hearing intact to finger rub bilaterally. IX, X: Symmetric palate elevation. XI: Shoulder shrug intact. XII: Tongue midline without fasciculation or atrophy. MOTOR: Normal bulk/tone. No pronator drift or tremor. Strength is 5/5 throughout all 4 extremities. SENSORY: Intact to light touch, temperature, pinprick in all 4 extremities. Romberg is negative. REFLEXES: 2+ throughout. Toes are downgoing. No clonus. Trever's is absent COORDINATION: Finger to nose and heel to cabral intact. No dysmetria. Rapid alternating movements with good speed and accuracy. GAIT: Narrow-based and stable. Able to toe/heel/tandem walk DIAGNOSTIC TESTING: LABORATORY: WBC 10.3 hemoglobin 14.2 platelet 225 PT 10.6 INR 1.0 sodium 141 potassium 4.1 chloride 107 bicarb 26 BUN 17 creatinine 0.94 glucose 94 AST 20 ALT 21 troponin <0.012 TSH 2.990 total cholesterol 175 LDL 117 HDL 46 triglycerides 58 IMAGING: Transesophageal echocardiogram 05/24/2019: There is evidence of a PFO with a small arvu-vn-qmeox shunt. There is evidence interatrial septum is aneurysmal and on saline contrast study there is a moderate to large right to left shunt noted. Left ventricular function is normal. Mild mitral regurgitation is noted. Aortic, mitral and tricuspid valve morphology is normal. Left atrial appendage is normal. MRI brain without contrast 05/23/2019: Acute cortical infarct involving the insula of the left temporal lobe and also the left cerebellar hemisphere. There is also acute infarct left posterior parietal lobe white matter. Numerous scattered small white matter high signal foci probably due to chronic small vessel ischemia CTA head and neck with contrast 05/23/2019: Negative CT of the brain and neck. CT head without contrast 05/23/2019: Age-related atrophic and chronic small vessel ischemic changes without acute intracranial process EKG 05/23/2019: Sinus bradycardia ASSESSMENT: Mr. Johnson is a 58-year-old R-handed man with past medical history of Osteoarthritis, sleep apnea, depression, presenting to [facility] after having an event of speech disturbance on Tuesday. Patient at this time with no objective focal symptoms. However, patient reports R-sided symptoms along with speech difficulty and patient is R handed, concerning for L-sided cortical stroke. MRI brain showing acute cortical infarct involving the left temporal lobe, left cerebellar hemisphere, and left posterior parietal lobe. Distribution of areas of stroke concerning for cardioembolic etiology. Patient does have a history of distant smoking, but otherwise no vascular risk factors. Patient denies ever having any clotting disorder, and also no clotting disorder in his family. However, there still is a possibility of hypercoagulable condition although he had a stroke most likely from a heart embolic etiology. Patient has been seen by cardiology here. Patient will be followed up for a PFO closure, which is the recommended next step for cryptogenic stroke. RECOMMENDATIONS: 1. Cardiac monitoring (bradycardia; no atrial arrhythmia observed so far); event monitor/loop recorder will be placed 2. ASA 81mg qday, Atorvastatin 80mg qhs 3. Labs: A1C, protein C/S activity, Factor V Leiden, Anti-thrombin III, Prothrombin 73107 G/A Mutation 6. PT/OT/ST per protocol 7. Discussed with patient about stroke prevention guidelines. Medication compliance, hypertension/diabetes control, lifestyle changes including no smoking, drinking in moderation, losing weight, exercising, eating healthier 8. Patient will need to follow up with neurologist as outpatient within 2-3 weeks of discharge 9. Discussed with patient about ED precautions. Patient to return if there is any severe headache, nausea, speech difficulty, weakness, numbness or tingling, vertigo. 10. Neurology will sign off at this time. Please feel free to contact Neurology again if with additional questions or concerns.
[2019-05-25] MEDS: ATORVASTATIN 80 MG TAB PO SCH (17:29)
--- NOTE | 2019-05-25 22:13 | PN ---
PROGRESS NOTE Mr. Johnson is a gentleman with a known history of recent TIA with right arm weakness, which has resolved. He had a MRI which revealed evidence of probable embolic stroke. Transesophageal echo revealed a dsbt-vz-ykpka flow across the PFO and bubble study revealed icbxl-qe-mfqr moderate shunt. The patient is advised to be on aspirin and Plavix. He can be discharged and I have asked him to see Dr. Vasquez in 2 weeks for PFO closure. I will follow him in the office subsequently. Vitals are stable. No JVD. S1-S2 heard normally. Short systolic murmur noted. Lungs are clear. Abdomen and lower extremity exam is unchanged. Patient can be discharged on aspirin and Plavix. MMODL / IJN: [id number] /
--- NOTE | 2019-05-26 20:23 | P.DS ---
Providers Date of admission: 05/24/19 12:52 Expected date of discharge: 05/26/19 Attending physician: Juan Santos Consults: 05/23/19 12:03 Consult Physician Urgent Consulting Provider: Mirlande Jeronimo Consult Reason/Comments: TIA Do you want consulting provider notified?: Yes 05/23/19 19:10 Consult Physician Routine Consulting Provider: Krysta Guardado Consult Reason/Comments: SARINA, positive MRI Do you want consulting provider notified?: Yes Primary care physician: Jose Vu Hospital Course: Chief Complaint: Difficulty with speech Hospital course: This is a very pleasant 58-year-old patient of Dr. Vu. Patient on Tuesday was in [facility] with her son. He was trying to say the word Ruben cartwright, but was unable to say that. He started going from one leg together for example [place] to [place] but all that was coming out was numbers 3-5. He also felt some numbness in the right hand. Does no headache no dizziness. Patient's son wanted to take him to the ER. But patient said he'll be fine. She decided to drive back to [place]. The following day he was working in the garden. Hasn't been away for a few weeks. He noticed that he was dropping things out of his right hand. Finally decided to get into the ER the following day. Updated a bit more on the Internet. Last night MRI results were called to me with a dense of acute infarct in different areas. I did order a SARINA. Patient's speech is somewhat better. SARINA showed a PFO with small kyeo-uo-fsdpx shunt. Moderate to large right to left shunt noted. No thrombus was reported. Stroke is felt to be embolic. Patient will follow-up with Dr Sorto as an outpatient. Care was discussed with the patient. Questions were answered. Symptoms improved by the time of discharge. Discussion and discharge planning more than 35 minutes Consultation: Dr. TADEO Guardado from cardiology Dr. Jeronimo from neurology . Physical examination: VITAL SIGNS: 98.1, 50, 16, 11 4/71, 93% room air GENERAL: Sitting up in bed. EYES: Pupils equal. Conjunctiva normal. HEENT: External appearance of nose and ears normal, oral cavity grossly normal. NECK: JVD not raised; masses not palpable. HEART: First and second heart sounds are normal; no edema. LUNGS: Respiratory rate normal; clear to auscultation. ABDOMEN: Soft, nontender, liver spleen not palpable, no masses palpable. PSYCH: Alert and oriented x3; mood and affect normal. NEUROLOGICAL: Cranial nerves grossly intact; no facial asymmetry, power and sensation grossly intact, Investigations: White count 10.3 hemoglobin 14.2 platelets 225 potassium 4.1 and creatinine 0.94 Homocysteine 8.9, TSH normal LDL 117 TSH normal Chest x-ray film personally reviewed by me-hyperinflation EKG tracing personally reviewed by me-sinus bradycardia MRI brain-acute cortical infarct involving the insular of the left temporal lobe, left cerebral hemisphere, left posterior parietal lobe white matter. Numerous scattered small white matter high signal foci. Negative CT angiogram of the brain. Negative CT angiogram of the neck. Computed tomography scan of the brain-age related changes SARINA results-as above Discharge diagnosis: -Acute embolic stroke and multiple areas of the brain involving the insular of the left temporal lobe, left cerebral hemisphere, left posterior parietal lobe white matter. This is embolic in nature. -Hyperlipidemia Disposition: Home Patient Condition at Discharge: Stable Plan - Discharge Summary Discharge Rx Participant: No New Discharge Prescriptions: New Aspirin 81 mg PO DAILY chew Atorvastatin Calcium [Lipitor] 80 mg PO HS #30 tablet Clopidogrel [Plavix] 75 mg PO DAILY #30 tablet Continue Calcium Carbonate [Calcium] 1,200 mg PO BID Discontinued Zinc 25 mg PO DAILY Loratadine [Claritin] 10 mg PO DAILY No Action Turmeric Root Extract [Turmeric] 500 mg PO DAILY Vitamin E 1,000 unit PO DAILY Vitamin B-12 1 tab PO DAILY Vitamin B Complex 1 cap PO DAILY Ubidecarenone [Co Q-10] 100 mg PO DAILY [place] 1,000 mg PO BID [place]-3 Fatty Acids/Fish Oil [Fish Oil 1,000 mg Softgel] 1 cap PO DAILY [place] Extract 150 mg PO DAILY Ascorbic Acid [Vitamin C] 1,000 mg PO DAILY Acetyl Carnitine-Alpha Lipoic 1 dose PO DAILY Discharge Medication List Acetyl Carnitine-Alpha Lipoic 1 dose PO DAILY 10/06/18 [History] Ascorbic Acid [Vitamin C] 1,000 mg PO DAILY 10/06/18 [History] Calcium Carbonate [Calcium] 1,200 mg PO BID 10/06/18 [History] [place] Extract 150 mg PO DAILY 10/06/18 [History] [place]-3 Fatty Acids/Fish Oil [Fish Oil 1,000 mg Softgel] 1 cap PO DAILY 10/06/18 [History] [place] 1,000 mg PO BID 10/06/18 [History] Turmeric Root Extract [Turmeric] 500 mg PO DAILY 10/06/18 [History] Ubidecarenone [Co Q-10] 100 mg PO DAILY 10/06/18 [History] Vitamin B Complex 1 cap PO DAILY 10/06/18 [History] Vitamin B-12 1 tab PO DAILY 10/06/18 [History] Vitamin E 1,000 unit PO DAILY 10/06/18 [History] Aspirin 81 mg PO DAILY chew 05/25/19 [Rx] Atorvastatin Calcium [Lipitor] 80 mg PO HS #30 tablet 05/25/19 [Rx] Clopidogrel [Plavix] 75 mg PO DAILY #30 tablet 05/25/19 [Rx] Follow up Appointment(s)/Referral(s): Krysta Guardado MD [STAFF PHYSICIAN] - 06/05/19 9:30 am (Tuesday PFO closure with Dr. Vasquez) Fabián Vu MD [Primary Care Provider] - 06/12/19 2:00 pm (Tuesday -if earlier appointment becomes available, office will call you.) Bolivar Alvarez MD [STAFF PHYSICIAN] - 1 Week (Office is closed. Please call to schedule appointment) Patient Instructions/Handouts: Transesophageal Echocardiogram (GEN), Ischemic Stroke (DC) Discharge Disposition: HOME SELF-CARE
== END 2019-05-25 17:44 | disposition home or self-care (01) | DRG 65 ==
LOC: EC 09:27 → 3SCARD 12:02 → OBSVTOIN 05-24 12:52
PROVIDERS: ADMIT Hospitalist; ATTEND Hospitalist
PROC: B246ZZ4 Ultrasonography of Right and Left Heart, Transesophageal (ICD-10-PCS; principal; 2019-05-24 13:00)
DX: I63.40 Cerebral infarction due to embolism of unspecified cerebral artery (principal); Q21.1 Atrial septal defect; G81.90 Hemiplegia, unspecified affecting unspecified side; E78.5 Hyperlipidemia, unspecified; F17.290 Nicotine dependence, other tobacco product, uncomplicated; F32.9 Major depressive disorder, single episode, unspecified; G47.30 Sleep apnea, unspecified; M19.90 Unspecified osteoarthritis, unspecified site; Z79.82 Long term (current) use of aspirin; Z82.3 Family history of stroke; Z86.73 Personal history of transient ischemic attack (TIA), and cerebral infarction without residual deficits; R47.89 Other speech disturbances; I67.9 Cerebrovascular disease, unspecified
CPT/HCPCS: 36415; 70450; 70496; 70498; 70551; 71046; 80053; 80061; 81240; 81241; 83036; 83090; 84443; 84484; 85025; 85300; 85303; 85306; 85610; 85730; 93005; 93306; 93312; 93320; 93325; 96360; 96361; 99285

== ENCOUNTER 2019-06-29 07:55 | Day surgery (SDC) | payer BC ==
[~2019-06-29 07:55] MED LIST changes: +ALPRAZolam 0.25 MG TAB PO PRN; +ALPRAZolam 0.5 MG TAB PO PRN; +ASPIRIN 325 MG TAB PO STA; +ATORVASTATIN 80 MG TAB PO STA; -LACTATED RINGERS 1,000 ML IV SCH; -LIDOCAINE 1% 20 ML VIAL (10MG/ML) FOR IV START INTRADERMA PRN; +NITROGLYCERIN SL TABS 0.4 MG TAB SUBLINGUAL PRN
[2019-06-29] MEDS: SODIUM CHLORIDE 0.9% 1,000 ML in EMPTY BAG 1 BAG IV ONE ×2 (08:15→10:30)
[2019-06-29] MEDS ORDERED: ASPIRIN 81 MG ONE (08:15)
[2019-06-29 08:26] LABS: Basophils # (A) 0.1 k/uL (0-0.2); Basophils % (A) 2 %; Eosinophils # (A) 0.1 k/uL (0-0.7); Eosinophils % (A) 2 %; HCT 43.8 % (39.0-53.0); HGB 14.8 gm/dL (13.0-17.5); Lymphocytes # (A) 1.4 k/uL (1.0-4.8); Lymphocytes % (A) 17 %; MCH 30.5 pg (25.0-35.0); MCHC 33.9 g/dL (31.0-37.0); MCV 90.1 fL (80.0-100.0); Mean Platelet Volume 6.5; Monocytes # (A) 0.5 k/uL (0-1.0); Monocytes % (A) 6 %; Neutrophils # (A) 5.9 k/uL (1.3-7.7); Neutrophils % (A) 73 %; Platelet Count 199 k/uL (150-450); RBC 4.86 m/uL (4.30-5.90); RDW 12.6 % (11.5-15.5); WBC 8.2 k/uL (3.8-10.6)
[2019-06-29 08:46] LABS: African American GFR (CKD) >90 (>60 ml/min/1.73 sqM); Anion Gap 7 mmol/L; Blood Urea Nitrogen 20 mg/dL (9-20); Calcium 9.4 mg/dL (8.4-10.2); Carbon Dioxide 27 mmol/L (22-30); Chloride 109 mmol/L (98-107); Glucose 85 mg/dL (74-99); Potassium 4.1 mmol/L (3.5-5.1); Sodium 143 mmol/L (137-145)
[2019-06-29] MEDS ORDERED: fentaNYL (PF) 50 MCG/ML 2 ML AMP IVP ONE (09:27)
[2019-06-29] MEDS ORDERED: MIDAZOLAM 2 MG/2 ML VIAL IVP ONE (09:28)
[2019-06-29] MEDS ORDERED: LIDOCAINE 1% INJ 10MG/ML (20 ML MDV) SQ ONE (09:30)
[2019-06-29] MEDS ORDERED: HEPARIN SODIUM 1,000 UN/ML (10ML VL) IV ONE (09:38)
[2019-06-29] MEDS ORDERED: IOPAMIDOL-370 50ML BTL INJ ONE (10:00)
[2019-06-29] MEDS ORDERED: CLOPIDOGREL 75 MG TAB PO ONE (10:07)
[2019-06-29] MEDS ORDERED: SODIUM CHLORIDE 0.9% 1,000 ML IV SCH (10:15)
--- NOTE | 2019-06-29 10:22 | P.PCN ---
Date of Procedure: 06/29/19 Operative Findings: PATENT FORAMEN OVALE PROCEDURE Performing physician: Cory Vasquez M.D. [facility] Procedure performed: Intracardiac echocardiogram imaging Successful percutaneous closure of patent foramen ovale using 25 mm Amplatzer PFO occluder with an excellent results and without any residual shunt Right atrial angiogram Indication: This is a pleasant 58-year-old gentleman who was admitted to the hospital recently with a TIA/stroke. He underwent a SARINA by Dr. VC Carreno and that revealed patent foramen ovale with evidence of oicjo-xg-clef shunt. Complication: None Level of sedation: Moderate sedation in to 34 minutes Procedure description: After obtaining an informed consent the patient was brought to the cardiac laboratory monitor. The right common femoral vein was cannulated twice using micropuncture technique under ultrasound guidance, the micropuncture wire passed easily, then I placed two 11 cm 8-Moldovan sheath in the right common femoral artery. At that point anticoagulation was initiated using heparin. The patient was given a total of 6000 use of heparin IV. Subsequently the intracardiac echocardiogram probe was advanced through the venous sheath under fluoroscopy guidance to the right atrium were we did intracardiac echocardiogram imaging. The interatrial septum was interrogated where I was able to evaluate the patent foramen ovale and glsfx-gl-wuzj shunt. We decided to pursue with a 25 mm Amplatzer PFO occluder. Subsequently I did across the patent foramen ovale using 035 wire with a backup support of multipurpose catheter. The wire was advanced to the left upper pulmonary vein subsequently I did advance the multipurpose catheter over the wire into that vein. Subsequently the wire was pulled out. Then I did advance adele the wire into the vein. At that point the device was prepped under saline. The device was attached to the cable. Subsequently I did change my 11 cm 8-Moldovan sheath into an 8-[place]oldovan torque view delivery sheath. The sheath was advanced over the stiff wire under fluoroscopy guidance were we crossed the interatrial septum. Subsequently the wire and dilator were removed. Then I did load the 25 mm Amplatzer PFO occluder to the sheath with continuous saline flush. Then the device was advanced all the way were with deployed initially the left atrial occluder and then the right atrial occluder under fluoroscopy guidance as well as under intracardiac echocardiogram. We did make sure that the device was in the right position and no residual shunt. We did make sure there is no potential aortic valve nor SVC. Finding the device was released and the cable was withdrawn out. By the end I did interrogate the device again using the intracardiac echocardiogram imaging. Finally I did right atrial angiogram. Subsequently I did exchange my long sheath into short sheath. The procedure was completed without any complications Postprocedure management: 1. Dual antiplatelet therapy 2. Transthoracic echocardiogram 3. Discharge home tomorrow morning
[2019-06-29 14:43] VITALS: BMI 25.2
[2019-06-29] MEDS: CALCIUM CARBONATE 500 MG CHEWABLE PO SCH (20:38)
[2019-06-29] MEDS ORDERED: ATORVASTATIN 80 MG TAB PO SCH (21:00)
[2019-06-29] MEDS ORDERED: SAW PALMETTO 1000 MG PO SCH (21:00)
--- NOTE | 2019-06-30 06:43 | XR ---
EXAMINATION TYPE: XR chest 2V DATE OF EXAM: 06/30/2019 HISTORY: ASD/PFO placement. REFERENCE: Previous study dated 05/23/2019. FINDINGS: The lungs are overinflated but clear. Pleural spaces are clear. The heart is not enlarged. IMPRESSION: COPD.
[2019-06-30 06:44] LABS: Basophils % (A) 1 %; Eosinophils # (A) 0.2 k/uL (0-0.7); Eosinophils % (A) 2 %; HCT 41.4 % (39.0-53.0); HGB 14.4 gm/dL (13.0-17.5); Lymphocytes # (A) 1.9 k/uL (1.0-4.8); Lymphocytes % (A) 24 %; MCH 31.5 pg (25.0-35.0); MCHC 34.9 g/dL (31.0-37.0); MCV 90.5 fL (80.0-100.0); Mean Platelet Volume 6.3; Monocytes # (A) 0.6 k/uL (0-1.0); Monocytes % (A) 7 %; Neutrophils # (A) 5.2 k/uL (1.3-7.7); Neutrophils % (A) 65 %; Platelet Count 164 k/uL (150-450); RBC 4.57 m/uL (4.30-5.90); RDW 12.8 % (11.5-15.5)
[2019-06-30 06:59] LABS: African American GFR (CKD) >90 (>60 ml/min/1.73 sqM); Anion Gap 5 mmol/L; Blood Urea Nitrogen 17 mg/dL (9-20); Calcium 9.4 mg/dL (8.4-10.2); Carbon Dioxide 27 mmol/L (22-30); Chloride 111 mmol/L (98-107); Glucose 95 mg/dL (74-99); Potassium 4.4 mmol/L (3.5-5.1); Sodium 143 mmol/L (137-145)
[2019-06-30] MEDS: CALCIUM CARBONATE 500 MG CHEWABLE PO SCH (08:01)
[2019-06-30 08:10] VITALS: BP 105/74; PULSE 56; RESP 18; TEMP 97.7
[2019-06-30] MEDS ORDERED: NON FORMULARY DRUG (Ubidecarenone [Co Q-10] 100 MG) PO SCH (09:00)
[2019-06-30] MEDS ORDERED: NON FORMULARY DRUG (Vitamin B Complex [Vitamin B Complex] 1 CAP) PO SCH (09:00)
[2019-06-30] MEDS ORDERED: [UNRECOGNIZED DRUG - MIXTURE] PO SCH (09:00)
[2019-06-30] MEDS ORDERED: NON FORMULARY DRUG (Omega-3 Fatty Acids/Fish Oil [Fish Oil 1,000 Mg Softgel] 1 CAP) PO SCH (09:00)
[2019-06-30] MEDS ORDERED: ASCORBIC ACID 500 MG TAB PO SCH (09:00)
[2019-06-30] MEDS ORDERED: CLOPIDOGREL 75 MG TAB PO SCH ×2 (09:00)
[2019-06-30] MEDS ORDERED: OLIVE LEAF EXTRACT PO SCH (09:00)
[2019-06-30] MEDS ORDERED: VITAMIN E (DL,TOCOPHERYL ACET) 400 UNIT CAP PO SCH (09:00)
[2019-06-30] MEDS ORDERED: NON FORMULARY DRUG (Turmeric Root Extract [Turmeric] 500 MG) PO SCH (09:00)
[2019-06-30] MEDS ORDERED: ASPIRIN 81 MG PO SCH (09:00)
[2019-06-30] MEDS ORDERED: ASPIRIN 325 MG TAB PO SCH (09:00)
[2019-06-30] MEDS ORDERED: CYANOCOBALAMIN 500 MCG TAB PO SCH (09:00)
--- NOTE | 2019-06-30 09:26 | P.DS ---
Providers Date of admission: June 302018 Attending physician: Cory Vasquez Primary care physician: [facility] Course: This is a 58-year-old gentleman who was diagnosed recently with a stroke subsequently underwent transesophageal echocardiogram which revealed patent chaudhary ovale with [id number] shunt. The patient underwent yesterday successful percutaneous closure of patent foramen ovale using 25 mm Amplatzer PFO occluder with an excellent results by the end and without any residual shunt. On follow-up with him today, he is doing good and he is asymptomatic. The right groin is soft nontender and without any bruises. The patient has been up and around walking. The blood work was reviewed as well and seems to be unremarkable. The echocardiogram was reviewed this morning and showed stable PFO occluder without any residual shunt. I did review the chest x-ray as well and I could not see any acute abnormalities but I had time visualizing and seeing the device itself. The patient is going to be discharged home on dual antiplatelet therapy Plan - Discharge Summary Discharge Rx Participant: Yes New Discharge Prescriptions: Continue Turmeric Root Extract [Turmeric] 500 mg PO DAILY Vitamin E 1,000 unit PO DAILY Vitamin B-12 1 tab PO DAILY Vitamin B Complex 1 cap PO DAILY Ubidecarenone [Co Q-10] 100 mg PO DAILY [place] 1,000 mg PO BID [place]-3 Fatty Acids/Fish Oil [Fish Oil 1,000 mg Softgel] 1 cap PO DAILY [place] Extract 150 mg PO DAILY Calcium Carbonate [Calcium] 1,200 mg PO BID Ascorbic Acid [Vitamin C] 1,000 mg PO DAILY Acetyl Carnitine-Alpha Lipoic 1 dose PO DAILY Aspirin 81 mg PO DAILY chew Atorvastatin Calcium [Lipitor] 80 mg PO HS #30 tablet Clopidogrel [Plavix] 75 mg PO DAILY #30 tablet Discharge Medication List Acetyl Carnitine-Alpha Lipoic 1 dose PO DAILY 10/06/18 [History] Ascorbic Acid [Vitamin C] 1,000 mg PO DAILY 10/06/18 [History] Calcium Carbonate [Calcium] 1,200 mg PO BID 10/06/18 [History] [place] Extract 150 mg PO DAILY 10/06/18 [History] [place]-3 Fatty Acids/Fish Oil [Fish Oil 1,000 mg Softgel] 1 cap PO DAILY 10/06/18 [History] [place] 1,000 mg PO BID 10/06/18 [History] Turmeric Root Extract [Turmeric] 500 mg PO DAILY 10/06/18 [History] Ubidecarenone [Co Q-10] 100 mg PO DAILY 10/06/18 [History] Vitamin B Complex 1 cap PO DAILY 10/06/18 [History] Vitamin B-12 1 tab PO DAILY 10/06/18 [History] Vitamin E 1,000 unit PO DAILY 10/06/18 [History] Aspirin 81 mg PO DAILY chew 05/25/19 [Rx] Atorvastatin Calcium [Lipitor] 80 mg PO HS #30 tablet 05/25/19 [Rx] Clopidogrel [Plavix] 75 mg PO DAILY #30 tablet 05/25/19 [Rx] Follow up Appointment(s)/Referral(s): Cory Vasquez MD [STAFF PHYSICIAN] - 07/06/19 4:00 pm
--- NOTE | 2019-06-30 14:43 | ECHOF ---
Referral Reason:Post ASD/PFO Insertion MEASUREMENTS -------- HEIGHT: 182.9 cm WEIGHT: 79.4 kg BP: 113/63 RVIDd: 3.3 cm (< 3.3) IVSd: 1.0 cm (0.6 - 1.1) LVIDd: 3.6 cm (3.9 - 5.3) LVPWd: 1.3 cm (0.6 - 1.1) IVSs: 1.5 cm LVIDs: 2.8 cm LVPWs: 2.0 cm LAESV Index (A-L): 29.71 ml/m Ao Diam: 3.1 cm (2.0 - 3.7) AV Cusp: 2.0 cm (1.5 - 2.6) LA Diam: 3.7 cm (2.7 - 3.8) MV EXCURSION: 15.271 mm (> 18.000) MV EF SLOPE: 85 mm/s (70 - 150) EPSS: 0.7 cm MV E David: 0.65 m/s MV DecT: 287 ms MV A David: 0.67 m/s MV E/A Ratio: 0.97 AR PHT: 219 ms RAP: 5.00 mmHg RVSP: 25.39 mmHg TAPSE: 26.72 mm FINDINGS -------- Sinus rhythm. This was a technically good study. The left ventricular size is normal. There is mild concentric left ventricular hypertrophy. Overa ll left ventricular systolic function is normal with, an EF between 55 - 60 %. The diastolic fillin g pattern is normal for the age of the patient 8.69. The right ventricle is mildly enlarged. The right ventricular systolic function is normal. The left atrial size is normal. Normal LA size by volume 22+/-6 ml/m2. The right atrial size is normal. There is an interatrial closure device in place without evidence of shunt. The aortic valve is trileaflet and appears structurally normal. Trace amount of aortic regurgitatio n. The mitral valve is normal. The mitral valve leaflets are mildly thickened. Mild mitral regurgita tion is present. The tricuspid valve appears structurally normal. Mild tricuspid regurgitation present. Right vent ricular systolic pressure is normal at < 35 mmHg. There is no pulmonic regurgitation present. The aortic root size is normal. Normal inferior vena cava with normal inspiratory collapse consistent with estimated right atrial pre ssure of 5 mmHg. There is no pericardial effusion. CONCLUSIONS -------- 1. Sinus rhythm. 2. This was a technically good study. 3. The left ventricular size is normal. 4. There is mild concentric left ventricular hypertrophy. 5. Overall left ventricular systolic function is normal with, an EF between 55 - 60 %. 6. The diastolic filling pattern is normal for the age of the patient 8.69 7. The right ventricle is mildly enlarged. 8. The right ventricular systolic function is normal. 9. The left atrial size is normal. 10. Normal LA size by volume 22+/-6 ml/m2. 11. The right atrial size is normal. 12. There is an interatrial closure device in place without evidence of shunt. 13. The aortic valve is trileaflet and appears structurally normal. 14. Trace amount of aortic regurgitation. 15. The mitral valve is normal. 16. The mitral valve leaflets are mildly thickened. 17. Mild mitral regurgitation is present. 18. The tricuspid valve appears structurally normal. 19. Mild tricuspid regurgitation present. 20. Right ventricular systolic pressure is normal at < 35 mmHg. 21. There is no pulmonic regurgitation present. 22. The aortic root size is normal. 23. Normal inferior vena cava with normal inspiratory collapse consistent with estimated right atrial pressure of 5 mmHg. 24. There is no pericardial effusion. CARDER BLANKETS: Deja Sharpe RDCS
== END 2019-06-30 10:22 | disposition home or self-care (01) ==
LOC: CATHCVL 07:55 → 3SCARD 10:03 → CATHCVL 06-30 10:22
PROVIDERS: ATTEND Internal Medicine Interventional Cardiology
DX: Q21.1 Atrial septal defect (principal); I63.9 Cerebral infarction, unspecified; R41.3 Other amnesia; I08.1 Rheumatic disorders of both mitral and tricuspid valves; J44.9 Chronic obstructive pulmonary disease, unspecified; G47.33 Obstructive sleep apnea (adult) (pediatric); F17.210 Nicotine dependence, cigarettes, uncomplicated; Z79.02 Long term (current) use of antithrombotics/antiplatelets; Z79.899 Other long term (current) drug therapy; Z79.82 Long term (current) use of aspirin; Z82.49 Family history of ischemic heart disease and other diseases of the circulatory system
CPT/HCPCS: 93306; 93580; 93662; 86900; 86901; 80048 ×2; 85025 ×2; 86850; 71046; C1769 ×5; C1894; C1817; C1759; J2250; J0690; J2001; J3010; J1644; Q9967

== ENCOUNTER → 2023-07-05 | Day surgery (SDC) | payer BC ==
[2023-06-30 12:24] VITALS: BMI 22.6
[~2023-07-05] MED LIST changes: -ATORVASTATIN 80 MG TAB PO STA; +HEPARIN SODIUM 1,000 UN/ML (10ML VL) IV ONE; +HEPARIN SODIUM 1,000 UN/ML (10ML VL) ONE; +HEPARIN SODIUM,PORCINE (1 ML) 2,500 UNIT in SODIUM CHLORIDE 0.9% 250 ML IRRIGATION PRN; +HEPARIN SODIUM,PORCINE 10,000 UNIT in SODIUM CHLORIDE 0.9% 1,000 ML IRRIGATION PRN; +IOPAMIDOL-370 100ML BTL INJ ONE; +LIDOCAINE 1% INJ 10MG/ML (20 ML MDV) ONE; +LIDOCAINE 1% INJ 10MG/ML (20 ML MDV) SQ ONE; +MIDAZOLAM 2 MG/2 ML VIAL IVP ONE; +SODIUM CHLORIDE 0.9% 1,000 ML IV SCH; +SODIUM CHLORIDE 0.9% 1,000 ML in EMPTY BAG 1 BAG IV SCH; +SODIUM CHLORIDE 0.9% 500 ML 500 ML IV ONE; +VERAPAMIL 2.5 MG/ML 2 ML AMP ONE; +VERAPAMIL SYRINGE (5 MG/10 ML) INTRAARTER ONE
[2023-07-05 06:42] VITALS: RESP 18; TEMP 99
--- NOTE | 2023-07-05 08:45 | CC ---
CARDIAC CATHETERIZATION REPORT PROCEDURE: Left heart catheterization and coronary angiography. PERFORMED BY: Dr. Lorena Guardado ANESTHESIA: Moderate conscious sedation. Time was 19 minutes. The patient was administered Versed. Oxygen saturation, hemodynamics, and EKG were monitored closely. CLINICAL INFORMATION: Mr. Eb Johnson is a 62-year-old gentleman with a history of CVA with full recovery and a PFO closure that was performed in 2019. He also has hypertension, hyperlipidemia, and previous chronic nicotine dependence, which he claims he quit almost a year ago with some breakthroughs. He has had a recent stress test, which revealed inferior wall fixed defect with hypokinesia and was advised cardiac cath with possibility of prior MA or ischemia. He has mild pulmonary hypertension, and PFO closure was well sustained. Ejection fraction was normal. Because of an abnormal stress test and shortness of breath, he was advised cardiac cath. PROCEDURE NOTE: Under local anesthesia and strict aseptic precautions, a 6-[place] introducer was placed in the right radial artery. Using a JL3.5 and JR4 catheters, I performed coronary angiography, and the same right catheter was used to check LV pressure, but LV-gram was not performed. The sheath was taken out, and TR band applied as per protocol with saturation of the fingers of the right hand of 94%. The patient tolerated the procedure well. There were no complications. There was no family available, and I discussed with the patient the findings and reassured him, and I will see him in the office on the . CARDIAC CATHETERIZATION FINDINGS: The left ventricular end-diastolic pressure was about 7 mmHg without any gradient across aortic valve. CORONARY ANGIOGRAPHY FINDINGS: RIGHT CORONARY ARTERY: This is a very dominant vessel. When I cannulated the vessel, the catheter kept going into the conus branch. However, good angiogram was obtained. Large super dominant vessel gives off a large PDA and PLV. PLV is larger than PDA. All of these branches are free of significant disease with minor irregularities. LEFT MAIN CORONARY ARTERY: This is a long vessel, free of significant disease, bifurcates into circumflex, which is small and nondominant and LAD. Left main itself is free of significant disease. LEFT ANTERIOR DESCENDING CORONARY ARTERY: Good-caliber vessel, extends along the anterior wall, gives off 3 diagonal and several small septal branches. No significant disease. The distal portion of the LAD curves over the apex to supply the inferoapical portion of the left ventricle. Several septal branches and 3 diagonal branches are free of significant disease. LEFT POSTERIOR CIRCUMFLEX CORONARY ARTERY: Nondominant vessel, small in caliber, limited myocardium supplied by it. No significant disease. FINAL IMPRESSION: This patient has normal filling pressures, no gradient. He has a right-dominant system. Right is super dominant. No significant disease in the RCA. Small circumflex free of significant disease and the LAD is free of significant disease. RECOMMENDATIONS: Stress test was probably a false positive finding. No significant CAD. Continued medical therapy with risk factor modification is advised and to continue smoking cessation. He will be discharged later on today, and I will see him in the office on the . MMODL / IJN: [id number] /
[2023-07-05 11:55] VITALS: BP 118/80; PULSE 62
== END ==
LOC: CATHCVL 06:00
PROVIDERS: ATTEND Internal Medicine Interventional Cardiology
DX: R94.39 Abnormal result of other cardiovascular function study (principal); I27.20 Pulmonary hypertension, unspecified; E78.5 Hyperlipidemia, unspecified; I10 Essential (primary) hypertension; I25.2 Old myocardial infarction; Z86.73 Personal history of transient ischemic attack (TIA), and cerebral infarction without residual deficits; Z87.891 Personal history of nicotine dependence; Z79.82 Long term (current) use of aspirin; Z79.899 Other long term (current) drug therapy
CPT/HCPCS: 93458; C1769 ×2; C1894; J2250; J2001; J1644; Q9967

== ENCOUNTER → 2023-07-11 | Outpatient (CLI) | payer BC ==
[2023-07-11 15:51] LABS: BUN/Creat Ratio 17.22 Ratio (12.00-20.00); Blood Urea Nitrogen 15.5 mg/dL (9.0-27.0); Carbon Dioxide 24.7 mmol/L (21.6-31.8); Chloride 106 mmol/L (96-109); Glucose 92 mg/dL (70-110); Potassium 4.2 mmol/L (3.5-5.5); Sodium 141 mmol/L (135-145)
== END | disposition home or self-care (01) ==
LOC: LABWHC1 09:37
PROVIDERS: ATTEND Internal Medicine Interventional Cardiology
DX: I10 Essential (primary) hypertension (principal)
CPT/HCPCS: 36415; 80048